=== PATIENT | female | born 2000 | race Hispanic/Latino ===

== ENCOUNTER 2020-11-25 19:57 | Inpatient (IN) | payer MEDICAID ==
[~2020-11-25] VITALS: Ht 161.3 cm; Wt 83.9 kg
[2020-11-25] MEDS ORDERED: OXYTOCIN-LR 20 UNITS/1000 ML 1,000 ML IV SCH (20:15)
[2020-11-25] MEDS ORDERED: DINOPROSTONE 10 MG VAGINAL SUPP EC SCH (20:15)
[2020-11-25 21:02] LABS: APPEARANCE,URINE Clear (CLEAR); BILIRUBIN,URINE Negative (NEGATIVE); COLOR,URINE Yellow (YELLOW); GLUCOSE, URINE (UA) Negative (NEGATIVE); KETONES,URINE Negative (NEGATIVE); LEUKOCYTE ESTERASE ,URINE Small (NEGATIVE); NITRATE,URINE Negative (NEGATIVE); OCCULT BLOOD,URINE Negative (NEGATIVE); PH,URINE 6.5 (5.0-8.0); PROTEIN,URINE Negative (NEGATIVE); UROBILINOGEN,URINE 0.2 mg/dL (0.2-1.0)
[2020-11-25 21:13] LABS: RBC,URINE 0-1 /HPF (0-1)
[2020-11-25 21:14] LABS: BACTERIA,URINE Few /HPF (None Seen); MUCUS,URINE Rare LPF (None Seen); SQUAMOUS EPITHELIAL CELL,UR Few /HPF (0-2)
[2020-11-25 21:19] LABS: HEMATOCRIT 34.6 % (36-48); MEAN CORPUSCULAR HEMOGLOBIN 28.4 pg (27.0-33.0); MEAN CORPUSCULAR HGB CONC 31.8 g/dL (32.0-36.0); MEAN CORPUSCULAR VOLUME 89.2 fL (79-99); RED BLOOD CELL COUNT(AUTO) 3.88 MIL/uL (4.00-5.50); RED CELL DISTRIBUTION WIDTH 13.8 % (11.0-15.5); WHITE BLOOD COUNT (AUTO) 8.8 K/uL (4.8-10.8)
[2020-11-25] MEDS: LACTATED RINGERS 1000ML 1,000 ML IV PRN (21:39)
[2020-11-25 22:00] VITALS: BP 119/68
[2020-11-26] MEDS ORDERED: LACTATED RINGERS 500 ML 500 ML IV PRN (01:45)
[2020-11-26] MEDS ORDERED: NALOXONE HCL 0.4 MG/1 ML ML IV PRN (01:45)
[2020-11-26] MEDS ORDERED: EPHEDRINE SULFATE 50 MG/ML AMPULE IVP PRN (01:45)
[2020-11-26] MEDS ORDERED: FENTANYL CITRATE PF 50 MCG/1 ML 2ML VIAL ONE (01:59)
[2020-11-26] MEDS ORDERED: CETI10CA5 PO (03:40)
[2020-11-26] MEDS ORDERED: ACET500P24 PO (03:40)
[2020-11-26] MEDS ORDERED: PREN1TAB26 PO (03:40)
[2020-11-26] MEDS ORDERED: FERR-82 PO (03:40)
[2020-11-26] MEDS ORDERED: OXYTOCIN-LR 20 UNITS/1000 ML 1,000 ML IV SCH ×2 (06:00→11:15)
[2020-11-26] MEDS: LACTATED RINGERS 1000ML 1,000 ML IV PRN (07:44)
[2020-11-26] MEDS ORDERED: IBUPROFEN 600 MG TABLET ONE (11:06)
[2020-11-26] MEDS ORDERED: ACETAMINOPHEN 325 MG TAB PO PRN (11:15)
[2020-11-26] MEDS ORDERED: WITCH HAZEL 1 PAD TP PRN (11:15)
[2020-11-26] MEDS ORDERED: ACETAMINOPHEN WITH CODEINE 1 TAB TAB PO PRN (11:15)
[2020-11-26] MEDS ORDERED: LANOLIN 30GM OINTMENT TP PRN (11:15)
[2020-11-26] MEDS ORDERED: BENZOCAINE/LANOLIN/ALOE VERA 60 ML AEROSOL TP PRN (11:15)
[2020-11-26 11:32] VITALS: BP 126/83
[2020-11-26 16:30] VITALS: BP 134/80
[2020-11-26] MEDS ORDERED: DIPH,PERTUSS(ACELL),TET VAC/PF 0.5 ML VIAL IM SCH (16:45)
[2020-11-26] MEDS: IBUPROFEN 600 MG TABLET PO PRN ×2 (16:46→23:47)
[2020-11-26 19:10] VITALS: BP 150/80
[2020-11-26 19:55] VITALS: BP 126/67
[2020-11-26] MEDS: DOCUSATE SODIUM 100 MG CAP PO SCH (20:55)
[2020-11-26 23:02] VITALS: BP 130/69
[2020-11-27 03:05] VITALS: BP 134/74
[2020-11-27 07:05] LABS: HEMATOCRIT 32.1 % (36-48); MEAN CORPUSCULAR HEMOGLOBIN 27.6 pg (27.0-33.0); MEAN CORPUSCULAR HGB CONC 30.8 g/dL (32.0-36.0); MEAN CORPUSCULAR VOLUME 89.4 fL (79-99); PLATELET COUNT (AUTO) 205 K/uL (130-400); RED BLOOD CELL COUNT(AUTO) 3.59 MIL/uL (4.00-5.50); RED CELL DISTRIBUTION WIDTH 13.9 % (11.0-15.5); WHITE BLOOD COUNT (AUTO) 9.5 K/uL (4.8-10.8)
[2020-11-27 07:17] VITALS: BP 129/69
[2020-11-27 07:17] LABS: HEPATITIS Bs ANTIGEN SCREEN P Negative (Negative)
[2020-11-27] MEDS: DOCUSATE SODIUM 100 MG CAP PO SCH (08:37)
[2020-11-27] MEDS: IBUPROFEN 600 MG TABLET PO PRN (09:13)
== END 2020-11-27 11:40 | disposition home or self-care (01) | DRG 560 ==
LOC: LDH 19:57 → WSH 11-26 11:37
PROVIDERS: ADMIT Obstetrics & Gynecology; ATTEND Obstetrics & Gynecology
PROC: 10E0XZZ Delivery of Products of Conception, External Approach (ICD-10-PCS; principal; 2020-11-26)
PROC: 3E0234Z Introduction of Serum, Toxoid and Vaccine into Muscle, Percutaneous Approach (ICD-10-PCS; 2020-11-26)
PROC: 10907ZC Drainage of Amniotic Fluid, Therapeutic from Products of Conception, Via Natural or Artificial Opening (ICD-10-PCS; 2020-11-26)
PROC: 3E0R3BZ Introduction of Anesthetic Agent into Spinal Canal, Percutaneous Approach (ICD-10-PCS; 2020-11-26)
PROC: 00HU33Z Insertion of Infusion Device into Spinal Canal, Percutaneous Approach (ICD-10-PCS; 2020-11-26)
PROC: 3E0234Z Introduction of Serum, Toxoid and Vaccine into Muscle, Percutaneous Approach (ICD-10-PCS; 2020-11-26)
PROC: 3E033VJ Introduction of Other Hormone into Peripheral Vein, Percutaneous Approach (ICD-10-PCS; 2020-11-26)
PROC: 3E0P7VZ Introduction of Hormone into Female Reproductive, Via Natural or Artificial Opening (ICD-10-PCS; 2020-11-26)
DX: O69.81X0 Labor and delivery complicated by cord around neck, without compression, not applicable or unspecified (principal); J45.909 Unspecified asthma, uncomplicated; O99.52 Diseases of the respiratory system complicating childbirth; Z37.0 Single live birth; Z3A.39 39 weeks gestation of pregnancy; Z67.11 Type A blood, Rh negative; Z23 Encounter for immunization
CPT/HCPCS: 36415; 81001; 83033; 85027; 86592; 86850; 86900; 86901; 87340; 90715; A4314; G0378; J2590; J2791; J3010